=== PATIENT | female | born 1980 | race Caucasian/White ===

== ENCOUNTER 2024-09-29 06:12 | Inpatient (IN) ==
[2024-09-29] MEDS: LR 1,000 ML IV 1,000 ML IV ONE (06:24)
[2024-09-29] MEDS: NOZIN NASAL SANITIZER TP ONE (06:30)
[2024-09-29] MEDS: D5 1/2 NS 1,000 ML 1,000 ML IV SCH (06:45)
[2024-09-29] MEDS ORDERED: PITOCIN ONE (07:03)
[2024-09-29] MEDS ORDERED: MARCAINE SPINAL ONE (07:03)
[2024-09-29] MEDS ORDERED: ZOFRAN INJ 4 MG VIAL ONE ×2 (07:04→11:59)
[2024-09-29] MEDS ORDERED: DILAUDID INJ ONE (07:04)
[2024-09-29] MEDS ORDERED: PEPCID 20 MG VIAL ONE ×2 (07:04→11:59)
[2024-09-29] MEDS ORDERED: OFIRMEV IV 1000 MG VIAL 0 MG/0 ML VIAL IV ONE (07:05)
[2024-09-29] MEDS ORDERED: XYLOCAINE 2 % (PLAIN) ONE (07:05)
[2024-09-29] MEDS: NS 100 ML IV 100 ML ONE (07:20)
[2024-09-29] MEDS: ANCEF VIAL 1 GRAM IVP ONE (07:20)
[2024-09-29] MEDS ORDERED: REGLAN INJ 10 MG VIAL ONE ×2 (07:25→11:59)
[2024-09-29] MEDS ORDERED: EPHEDRINE SULFATE INJ ONE (07:40)
[2024-09-29] MEDS ORDERED: DILAUDID INJ IVP PRN (08:11)
[2024-09-29] MEDS ORDERED: BENADRYL INJ 50 MG VIAL IVP PRN ×2 (08:11→09:32)
[2024-09-29] MEDS ORDERED: ZOFRAN INJ 4 MG VIAL IVP PRN ×2 (08:11→09:32)
[2024-09-29] MEDS ORDERED: DIPRIVAN VIAL 0 ML ONE (08:16)
[2024-09-29] MEDS: D5 1/2 NS 1,000 ML 0 ML IV ONE (09:00)
[2024-09-29] MEDS ORDERED: REGLAN INJ 10 MG VIAL IVP PRN (09:32)
[2024-09-29] MEDS ORDERED: NARCAN INJ IVP PRN (09:32)
[2024-09-29] MEDS ORDERED: MYLICON TAB 80 MG CHEW PO PRN (09:32)
[2024-09-29] MEDS ORDERED: TORADOL 30 MG VIAL IVP PRN (09:32)
[2024-09-29] MEDS: OXYTOCIN 20 UNIT/1,000 ML-NS 20 UNIT/1,000 ML PLAST..BAG IV SCH (09:50)
[2024-09-29] MEDS ORDERED: VERSED ONE (11:54)
[2024-09-29] MEDS ORDERED: FENTANYL VIAL INJ 100 mcg ONE (11:54)
[2024-09-29] MEDS ORDERED: DIPRIVAN VIAL 20 ML ONE (11:58)
[2024-09-29] MEDS ORDERED: OFIRMEV IV 1000 MG VIAL 1,000 MG/100 ML VIAL IV ONE (11:58)
[2024-09-29] MEDS ORDERED: BRIDION ONE (11:58)
[2024-09-29] MEDS ORDERED: ROBINUL ONE (11:59)
[2024-09-29] MEDS ORDERED: DECADRON INJ ONE (11:59)
[2024-09-29] MEDS ORDERED: TORADOL 30 MG VIAL ONE (11:59)
[2024-09-29] MEDS ORDERED: ZEMURON 100 MG VIAL ONE (11:59)
[2024-09-29] MEDS: ADACEL or BOOSTRIX TDaP VACCINE IM ONE (19:15)
[2024-09-30] MEDS: PERCOCET TAB 5/325 MG PO PRN ×2 (00:49→10:02)
[2024-09-30 05:46] LABS: HEMATOCRIT 33.2 % (36.0-47.0)
[2024-09-30 05:49] LABS: HEMOGLOBIN 11.3 g/dL (12.0-16.0)
[2024-09-30] MEDS: PRENATAL PLUS PO SCH (08:05)
[2024-09-30] MEDS: COLACE CAP 100 MG PO SCH (09:08)
[2024-09-30] MEDS: BACTROBAN TOPICAL OINT TOP SCH (15:06)
[2024-09-30] MEDS: MOTRIN TAB 800 MG PO PRN (19:30)
[2024-10-01 08:24] VITALS: BP 175/79; PULSE 88; RESP 20; TEMP 98.3; O2SAT 98
== END 2024-10-01 11:15 | disposition home or self-care (01) | DRG 785 ==
LOC: LD 06:12 → MED/SURG 09:32
PROVIDERS: ADMIT Specialist; ATTEND Specialist
DX: R79.89 Other specified abnormal findings of blood chemistry; N85.8 Other specified noninflammatory disorders of uterus; O34.211 Maternal care for low transverse scar from previous cesarean delivery; O24.420 Gestational diabetes mellitus in childbirth, diet controlled; Z01.812 Encounter for preprocedural laboratory examination; Z30.2 Encounter for sterilization; Z37.0 Single live birth; Z3A.38 38 weeks gestation of pregnancy